=== PATIENT | female | born 1965 | race Caucasian/White ===

== ENCOUNTER 2016-08-22 09:02 | Day surgery (SDC) | payer OTHER ==
[~2016-08-22] VITALS: Ht 152.4 cm; Wt 65.0 kg
[2016-08-22 09:52] VITALS: Ht 152.4 cm; Wt 65.0 kg
[2016-08-22] MEDS ORDERED: OMEP40CA6 PO (09:59)
[2016-08-22] MEDS ORDERED: FENTAnyl 50 MCG/ML VIAL ONE (11:14)
[2016-08-22] MEDS ORDERED: MIDAZOLAM 1 MG/ML 2 ML INJ ONE ×4 (11:14→11:15)
[2016-08-22 11:35] VITALS: BP 105/64; PULSE 90; RESP 16
--- NOTE | 2016-08-22 18:05 | GILP ---
DATE OF PROCEDURE: 08/22/2016 NAME OF PROCEDURE: 1. Colonoscopy. 2. Esophagogastroduodenoscopy and biopsy. SURGEON: Helder Melo MD PREOPERATIVE DIAGNOSES: 1. Abdominal pain. 2. Chronic heartburn. 3. Change in the bowel habit. 4. History of colon polyps. POSTOPERATIVE DIAGNOSES: 1. Hiatal hernia. 2. Gastroesophageal reflux disease. 3. Gastritis. 4. Gastric mucosal biopsies were taken for Helicobacter pylori test. 5. Colonoscopy all the way to the cecum. 6. Internal hemorrhoids. 7. No colon neoplasm was identified. INDICATION FOR THE PROCEDURE: Ms. Tess Mota is a 51-year-old female patient who had upper abdom inal pain and chronic heartburn, not responding to therapy. The patient also noticed a change in th e bowel habit. She had history of colon polyps. The patient was scheduled for endoscopy and colono scopy for further evaluation. The procedures and possible complications were well explained to the patient. The patient understoo d and consented to the procedure. DESCRIPTION OF PROCEDURE: Under the influence of fentanyl and Versed, the gastroscope was carefully introduced into the esophagus and under direct vision, it was advanced to the stomach and through t he pylorus into the duodenal bulb and descending duodenum. FINDINGS: ESOPHAGUS: The patient had a hiatal hernia and gastroesophageal reflux disease. STOMACH: She had gastritis. Gastric mucosal biopsies were taken for H. pylori test. DUODENUM: Normal. The colonoscope was carefully introduced in the rectum and under direct vision, it was advanced all the way to the cecum. FINDINGS: The patient had internal hemorrhoids. No colon neoplasm was identified. She tolerated the procedures very well and there was no complication from the procedures. At the en d of the procedures, she was awake with stable vital signs and she was discharged home to the [facility] o f her family. IMPRESSION: 1. Hiatal hernia. 2. Gastroesophageal reflux disease. 3. Gastritis with erosions. 4. Gastric mucosal biopsies were taken for Helicobacter pylori test. 5. Colonoscopy all the way to the cecum. 6. Internal hemorrhoids. 7. No colon neoplasm was identified. PLAN: 1. Omeprazole 40 mg p.o. q.a.m. 2. Anusol-HC 2.5% cream b.i.d. p.r.n. 3. Await H. pylori test report. Dictated By: HELDER CRAFT/DANIE Conf#: [id number] DID#: [id number]
== END 2016-08-22 16:04 | disposition home or self-care (01) ==
LOC: GIL 09:02 → MERGE 09:02 → GIL 09:08
PROVIDERS: ATTEND Internal Medicine Gastroenterology
DX: R19.4 Change in bowel habit (principal); K44.9 Diaphragmatic hernia without obstruction or gangrene; K21.9 Gastro-esophageal reflux disease without esophagitis; K29.70 Gastritis, unspecified, without bleeding; K64.8 Other hemorrhoids
CPT/HCPCS: 43239; 45378; 87081; J2250; J3010; Z7610